=== PATIENT | male | born 1970 | race Caucasian/White ===

== ENCOUNTER 2020-01-08 18:35 | Emergency (ER) | payer SELFPAY ==
[~2020-01-08] VITALS: Ht 167.6 cm; Wt 103.6 kg
[2020-01-08 18:46] VITALS: BP 158/83
[2020-01-08] MEDS ORDERED: METHOCARBAMOL 750 MG TABLET ONE (19:26)
[2020-01-08] MEDS ORDERED: KETOROLAC 30 MG/1 ML ONE (19:26)
--- NOTE | 2020-01-08 19:27 | NUR ---
Pt to imaging.
[2020-01-08] MEDS ORDERED: KETOROLAC 30 MG/1 ML IM ONE (19:30)
[2020-01-08] MEDS ORDERED: METHOCARBAMOL 750 MG TABLET PO ONE (19:30)
--- NOTE | 2020-01-08 19:34 | NUR ---
Pt ambulatory to room from xray. Pt medicated per JAN.
--- NOTE | 2020-01-08 20:22 | NUR ---
At time of d/c, pt alert, oriented and ambulatory. NAD. Pt educated on prescriptions, home care, OTC meds and follow-up. Pt ambulated out of ER.
== END 2020-01-08 20:24 | disposition home or self-care (01) ==
LOC: ED 19:35
DX: S39.012A Strain of muscle, fascia and tendon of lower back, initial encounter (principal); E11.9 Type 2 diabetes mellitus without complications; W18.30XA Fall on same level, unspecified, initial encounter; Y93.89 Activity, other specified; Y92.89 Other specified places as the place of occurrence of the external cause; Y99.8 Other external cause status
CPT/HCPCS: 72110; 96372; 99283; J1885